=== PATIENT | female | born 1980 | race Caucasian/White ===

== ENCOUNTER 2018-02-14 02:33 | Emergency (ER) | payer MEDICAID ==
[~2018-02-14] VITALS: Ht 160 cm; Wt 100.0 kg
[~2018-02-14 02:33] MED LIST: LABE200T28
[2018-02-14 02:40] VITALS: BP 133/80
== END 2018-02-15 05:32 | disposition left against medical advice (07) ==
LOC: ER 02:33
DX: Z53.21 Procedure and treatment not carried out due to patient leaving prior to being seen by health care provider (principal); I10 Essential (primary) hypertension; F17.200 Nicotine dependence, unspecified, uncomplicated

== ENCOUNTER 2019-03-22 12:35 | Observation (INO) | payer SELFPAY ==
[~2019-03-22] VITALS: Ht 160 cm; Wt 105.2 kg
[2019-03-22] MEDS ORDERED: LACTATED RINGERS 1,000 ML IV SCH (13:59)
[2019-03-22] MEDS ORDERED: BETAMETHASONE ACET/BETAMET 30 MG/5 ML VIAL IM SCH (14:00)
[2019-03-22] MEDS: LACTATED RINGERS 1,000 ML IV SCH ×2 (15:09→23:54)
[2019-03-22 15:55] LABS: HEMATOCRIT 29.3 % (36.0-48.0); MEAN CORPUSCULAR HEMOGLOBIN 27.8 pg (28.0-32.0); MEAN CORPUSCULAR VOLUME 81.1 fL (81.0-99.0); PLATELET 271 x1000/uL (130-400); RED BLOOD CELL COUNT 3.61 mill/uL (4.2-5.4); RED CELL DISTRIBUTION WIDTH 14.6 % (11.6-14.6)
[2019-03-22 17:34] LABS: HEPATITIS B SURFACE ANTIGEN NEGATIVE
[2019-03-22 18:06] LABS: BASOPHILS % 0.2 % (0.0-2.0); EOSINOPHILS % 0.6 % (0.0-5.0); HEMATOCRIT. 30.5 % (36.0-48.0); HEMOGLOBIN. 10.1 g/dL (12.0-16.0); LYMPHOCYTES % 17.8 % (20.0-50.0); MEAN CORPUSCULAR HEMOGLOBIN 26.7 pg (28.0-32.0); MEAN PLATELET VOLUME 7.9 fl (7.4-10.4); MONOCYTES % 2.4 % (2.0-8.0); PLATELET 269 x1000/uL (130-400); RED BLOOD CELL COUNT 3.77 mill/uL (4.2-5.4); RED CELL DISTRIBUTION WIDTH 14.8 % (11.6-14.6)
[2019-03-22 22:41] LABS: CLARITY URINE CLEAR (CLEAR); COLOR URINE DARK YELLOW (YELLOW); KETONES URINE NEGATIVE (NEGATIVE); LEUKOCYTE ESTERASE URINE TRACE (NEGATIVE); NITRITE URINE NEGATIVE (NEGATIVE); OCCULT BLOOD URINE NEGATIVE (NEGATIVE); PH URINE 5.5 (4.5-8.0); PROTEIN URINE TRACE (NEGATIVE); SPECIFIC GRAVITY URINE 1.028 (1.005-1.030)
[2019-03-22 22:53] LABS: *BARBITURATES SCREEN URINE NEGATIVE (NEGATIVE); *BENZODIAZEPINES SCREEN URINE NEGATIVE (NEGATIVE); *COCAINE SCREEN URINE NEGATIVE (NEGATIVE); METHADONE URINE SCREEN NEGATIVE (NEGATIVE)
[2019-03-22 22:54] LABS: CANNABINOID URINE SCREEN NEGATIVE (NEGATIVE); PHENCYCLIDINE URINE SCREEN NEGATIVE (NEGATIVE)
[2019-03-22 22:59] LABS: *AMPHETAMINES SCREEN URINE PRESUMTIVE POSITIVE (NEGATIVE)
[2019-03-22 23:00] LABS: OPIATES URINE SCREEN PRESUMTIVE POSITIVE (NEGATIVE)
[2019-03-23] MEDS ORDERED: METHADONE HCL 10MG TABLET PO SCH (05:00)
[2019-03-23] MEDS ORDERED: DIPHENHYDRAMINE 50MG/ML VIAL IM NR (08:30)
[2019-03-23] MEDS: LACTATED RINGERS 1,000 ML IV SCH (08:56)
== END 2019-03-23 10:12 | disposition left against medical advice (07) ==
LOC: 8 EST LDRP 12:35
PROVIDERS: ADMIT Obstetrics & Gynecology; ATTEND Obstetrics & Gynecology
DX: O46.93 Antepartum hemorrhage, unspecified, third trimester (principal); Z98.891 History of uterine scar from previous surgery; Z3A.33 33 weeks gestation of pregnancy
CPT/HCPCS: 36415; 76805; 76818; 80305; 80307; 80359; 80361; 81003; 85025; 85027; 85730; 86592; 86703; 86762; 86850; 86900; 86901; 87340; 96372; 99281; G0378; J0702; J1200; J7120

== ENCOUNTER 2020-08-12 07:54 | Inpatient (IN) | payer MEDICAID ==
[~2020-08-12] VITALS: Ht 160 cm; Wt 89.8 kg
[~2020-08-12 07:54] MED LIST changes: +FERR325T6 MT; +IBUP-2030 PO; -LABE200T28; +LABE200T9; +PNV1TABL76 MT
[2020-08-12] MEDS ORDERED: MORPHINE SULFATE 4 MG/ML CPJ (NOT FOR IM USE) IV STA (08:24)
[2020-08-12] MEDS ORDERED: ONDANSETRON HCL 4MG/2ML INJ IV STA (08:24)
[2020-08-12 09:02] LABS: HEMATOCRIT. 36.2 % (36.0-48.0); HEMOGLOBIN. 11.5 g/dL (12.0-16.0); MEAN CORPUSCULAR VOLUME 69.3 fL (81.0-99.0); MEAN PLATELET VOLUME 7.5 fl (7.4-10.4); PLATELET 356 x1000/uL (130-400); RED BLOOD CELL COUNT 5.22 mill/uL (4.2-5.4); RED CELL DISTRIBUTION WIDTH 18.2 % (11.6-14.6)
[2020-08-12 09:06] LABS: CLARITY URINE CLOUDY (CLEAR); COLOR URINE YELLOW (YELLOW); KETONES URINE NEGATIVE (NEGATIVE); LEUKOCYTE ESTERASE URINE 2+ (NEGATIVE); NITRITE URINE POSITIVE (NEGATIVE); OCCULT BLOOD URINE 2+ (NEGATIVE); PROTEIN URINE 1+ (NEGATIVE)
[2020-08-12 09:08] LABS: CHLORIDE 105 mEq/L (98-107)
[2020-08-12] MEDS ORDERED: HYDRALAZINE 20MG/ML VIAL IV ONE (09:15)
[2020-08-12 10:26] LABS: *BARBITURATES SCREEN URINE NEGATIVE (NEGATIVE); *BENZODIAZEPINES SCREEN URINE NEGATIVE (NEGATIVE); *COCAINE SCREEN URINE NEGATIVE (NEGATIVE); METHADONE URINE SCREEN NEGATIVE (NEGATIVE)
[2020-08-12 10:27] LABS: CANNABINOID URINE SCREEN NEGATIVE (NEGATIVE); PHENCYCLIDINE URINE SCREEN NEGATIVE (NEGATIVE)
[2020-08-12 10:29] LABS: *AMPHETAMINES SCREEN URINE PRESUMTIVE POSITIVE (NEGATIVE); OPIATES URINE SCREEN PRESUMTIVE POSITIVE (NEGATIVE)
[2020-08-12] MEDS ORDERED: CEFTRIAXONE 1 G PREMIX 50 ML IV NR (10:30)
[2020-08-12] MEDS ORDERED: LABETALOL 5MG/ML SYR 20 MG/4 ML SYRINGE IV ONE (10:45)
[2020-08-12] MEDS ORDERED: KETOROLAC 60MG/2ML VIAL IM ONE (10:45)
[2020-08-12 13:35] LABS: PLATELET ESTIMATE NORMAL
[2020-08-12] MEDS ORDERED: IPRATROPIUM/ALBUTEROL 0.5-3(2.5)MG/3ML NEB HHN PRN (16:15)
[2020-08-12] MEDS ORDERED: ONDANSETRON HCL 4MG/2ML INJ IV PRN (16:15)
[2020-08-12] MEDS ORDERED: LABETALOL 5MG/ML SYR 20 MG/4 ML SYRINGE IV PRN (16:15)
[2020-08-12] MEDS ORDERED: ACETAMINOPHEN 325MG TABLET PO PRN ×2 (16:15)
[2020-08-12] MEDS ORDERED: MORPHINE SULFATE 2 MG/ML CPJ (NOT FOR IM USE) IV PRN (16:15)
[2020-08-12] MEDS: SODIUM CHLORIDE 0.9% 1,000 ML IV SCH ×2 (16:48→21:52)
[2020-08-12 17:00] LABS: HCG SCREEN NEGATIVE
[2020-08-12 20:00] VITALS: BP 134/85
[2020-08-12 21:00] VITALS: BP 134/85
[2020-08-13] VITALS: BP 136/79
[2020-08-13 04:00] VITALS: BP 143/85
[2020-08-13 06:13] LABS: BASOPHILS % 0.3 % (0.0-2.0); CHLORIDE 106 mEq/L (98-107); EOSINOPHILS % 1.2 % (0.0-5.0); HEMATOCRIT. 31.2 % (36.0-48.0); HEMOGLOBIN. 9.5 g/dL (12.0-16.0); LYMPHOCYTES % 17.2 % (20.0-50.0); MEAN CORPUSCULAR HEMOGLOBIN 21.4 pg (28.0-32.0); MEAN CORPUSCULAR VOLUME 70.2 fL (81.0-99.0); MONOCYTES % 6.1 % (2.0-8.0); NEUTROPHILS % 75.2 % (40.0-76.0); PLATELET 299 x1000/uL (130-400); RED BLOOD CELL COUNT 4.45 mill/uL (4.2-5.4); RED CELL DISTRIBUTION WIDTH 18.5 % (11.6-14.6)
[2020-08-13 08:00] VITALS: BP 144/81
[2020-08-13] MEDS: SODIUM CHLORIDE 0.9% 1,000 ML IV SCH ×2 (11:15→13:27)
[2020-08-13 12:00] VITALS: BP 131/74
[2020-08-13] MEDS: AMLODIPINE 5MG TABLET PO SCH (13:27)
[2020-08-13] MEDS: TAMSULOSIN HCL 0.4MG SR CAPSULE PO SCH (13:35)
[2020-08-13] MEDS: HYDROCODONE/ACETAMINOPHEN 5/325MG TABLET PO PRN ×2 (13:36→21:38)
[2020-08-13] MEDS ORDERED: CEFTRIAXONE 1,000 MG in DEXTROSE 5% WATER 50 ML IV SCH (14:00)
[2020-08-13 15:59] VITALS: BP 159/82
[2020-08-13 20:00] VITALS: BP 139/76
[2020-08-14] VITALS (7 sets, daily range): BP systolic 141–174; BP diastolic 82–104
[2020-08-14] MEDS: HYDROCODONE/ACETAMINOPHEN 5/325MG TABLET PO PRN ×3 (01:59→17:15)
[2020-08-14] MEDS: MORPHINE SULFATE 2 MG/ML CPJ (NOT FOR IM USE) IV PRN ×4 (05:45→20:08)
[2020-08-14 06:57] LABS: BASOPHILS % 0.2 % (0.0-2.0); CHLORIDE 103 mEq/L (98-107); EOSINOPHILS % 1.6 % (0.0-5.0); HEMATOCRIT. 31.1 % (36.0-48.0); HEMOGLOBIN. 10.2 g/dL (12.0-16.0); LYMPHOCYTES % 15.6 % (20.0-50.0); MEAN CORPUSCULAR HEMOGLOBIN 22.7 pg (28.0-32.0); MEAN PLATELET VOLUME 7.9 fl (7.4-10.4); MONOCYTES % 5.1 % (2.0-8.0); NEUTROPHILS % 77.5 % (40.0-76.0); PLATELET 283 x1000/uL (130-400); RED BLOOD CELL COUNT 4.51 mill/uL (4.2-5.4); RED CELL DISTRIBUTION WIDTH 17.7 % (11.6-14.6)
[2020-08-14] MEDS: SODIUM CHLORIDE 0.9% 1,000 ML IV SCH ×2 (08:15→18:03)
[2020-08-14] MEDS: TAMSULOSIN HCL 0.4MG SR CAPSULE PO SCH (08:58)
[2020-08-14] MEDS: AMLODIPINE 5MG TABLET PO SCH (08:58)
[2020-08-14] MEDS: PIPERACILLIN/TAZOBACTAM 3.375G in DEXT 5% WATER 50ML IV SCH ×2 (11:09→17:14)
[2020-08-14] MEDS ORDERED: PIPERACILLIN/TAZOBACTAM 3.375 G/VIAL IV SCH (14:00)
[2020-08-14] MEDS ORDERED: CLONIDINE 0.1MG TABLET PO PRN (14:15)
[2020-08-14] MEDS ORDERED: AMLODIPINE 5MG TABLET PO NR (14:15)
[2020-08-15] MEDS ORDERED: AMLODIPINE 5MG TABLET PO SCH (09:00)
== END 2020-08-14 22:15 | disposition left against medical advice (07) | DRG 720 ==
LOC: ER 07:54 → 6EST 15:35 → EDBEDREQ 15:40 → ENRESERV 19:16 → UNDODISIN 08-14 23:09
PROVIDERS: ADMIT Internal Medicine; ATTEND Internal Medicine
DX: A41.9 Sepsis, unspecified organism (principal); K76.0 Fatty (change of) liver, not elsewhere classified; N13.6 Pyonephrosis; D72.825 Bandemia; I16.0 Hypertensive urgency; F11.90 Opioid use, unspecified, uncomplicated; I10 Essential (primary) hypertension; E66.9 Obesity, unspecified; Z87.442 Personal history of urinary calculi; Z98.891 History of uterine scar from previous surgery; Z79.899 Other long term (current) drug therapy; Z71.3 Dietary counseling and surveillance; Z68.35 Body mass index [BMI] 35.0-35.9, adult
CPT/HCPCS: 36415; 74176; 76830; 76856; 80048; 80053; 80305; 81003; 84703; 85025; 87077; 87186; 99285; J0360; J0696; J1885; J2270; J2405; J2543; J3490; J7030; J7060

== ENCOUNTER 2022-03-14 20:54 | Emergency (ER) | payer MEDICAID ==
[~2022-03-14] VITALS: Ht 160 cm; Wt 118.0 kg
[2022-03-14 21:14] VITALS: BP 189/116
[2022-03-14] MEDS ORDERED: SULF1TAB48 MT (23:45)
== END 2022-03-14 23:45 | disposition home or self-care (01) ==
LOC: ER 20:54
DX: L02.414 Cutaneous abscess of left upper limb (principal); I10 Essential (primary) hypertension; F15.10 Other stimulant abuse, uncomplicated; Z98.890 Other specified postprocedural states; Z79.899 Other long term (current) drug therapy
CPT/HCPCS: 73060; 81025; 99283

== ENCOUNTER 2023-02-26 08:25 | Emergency (ER) | payer MEDICAID ==
[~2023-02-26] VITALS: Ht 160 cm; Wt 104.3 kg
[~2023-02-26 08:25] MED LIST changes: +SULF1TAB48 MT
[2023-02-26 08:38] VITALS: BP 168/106; PULSE 90; RESP 16; TEMP 98.6; O2SAT 99
[2023-02-26] MEDS ORDERED: ACETAMINOPHEN 325MG TABLET PO ONE (08:45)
== END 2023-02-26 14:01 | disposition left against medical advice (07) ==
LOC: ER 08:25
DX: M25.562 Pain in left knee (principal); I10 Essential (primary) hypertension; F15.90 Other stimulant use, unspecified, uncomplicated; F19.90 Other psychoactive substance use, unspecified, uncomplicated; Z98.890 Other specified postprocedural states
CPT/HCPCS: 99281